=== PATIENT | male | born 1960 | race Caucasian/White ===

== ENCOUNTER 2023-11-25 20:47 | Emergency (ER) | payer OTHER, SELFPAY ==
[2023-11-25 20:52] VITALS: BP 123/90
[2023-11-25] MEDS: TYLENOL 650 MG PO (21:54)
[2023-11-25] MEDS: MOTRIN 600 MG PO (21:54)
[2023-11-25] MEDS: LIDOCAINE 4% PATCH 1 PATCH TOPICAL (21:54)
--- NOTE | 2023-11-25 22:04 | ED.GENMED ---
History of Present Illness
General
Chief Complaint: Back Pain
Source: patient and significant other
Exam Limitations: none
Time Seen by Provider: 11/25/23 21:19
Nursing documentation reviewed up to this point in time: agreed with
Travel History
Have you had any contact with someone who has COVID-19?: No
Do you have any symptoms of coronavirus? Fever > 100 degrees, chills, cough, shortness of breath, sore throat, loss of taste or smell, muscle aches, or headache?: No
History of Present Illness
History of Present Illness:
Patient is a 63-year-old male with past medical history of prediabetes, previous hernia status post repair, Lyme disease approximately 3 years ago, currently undomiciled, who presents to the emergency department accompanied by his for
evaluation of back pain. Patient reports the pain has been going on for at least a few weeks. Patient denies any known injury, trauma, overuse. Patient reports the pain is located over the right mid to lower back. Patient denies that radiates
into the abdomen. Patient reports that sometimes he has chest pain but he has not currently. Patient reports sometimes he has abdominal pain but also has none currently. Patient denies any nausea or vomiting. Patient denies hematuria or issues
with urination. Patient denies fevers or chills. Patient denies any bowel or bladder dysfunction, denies any saddle anesthesia, denies any paresthesias of the lower extremities. Patient denies any recent fevers or IV drug use.
Past History
Past History
ED Past Medical History: Other (pre-diabetes)
ED Past Surgical History: Other (Hernia repair)
Social History
Tobacco: Non-smoker
Alcohol: None
Drug: None
Personal:
Living: homeless
Review of Systems
Review of Systems
Allergies reviewed?: Yes
All Other Systems: Not applicable
Constitutional: Reports no symptoms
EENT: Reports no symptoms
Respiratory: Reports no symptoms
Cardiac: Reports chest pain ('sometimes')
ABD/GI: Reports abdominal pain ('sometimes')
: Reports no symptoms
Musculoskeletal: Reports no symptoms
Skin: Reports no symptoms
Neurological: Reports no symptoms
Endocrine: Reports no symptoms
Hematologic/Lymphatic: Reports no symptoms
Psychiatric: Reports no symptoms
Phy Exam
General Physical Exam
General Presentation: well appearing and no apparent distress
General Skin: warm and dry
General Habitus: normal
General Mental: alert
General Hydration: appears well hydrated
ENT Exam
ENT Exam: EOMI, pharynx normal, neck supple and normocephalic
Eye Exam
Eye Exam: PERRL, cornea clear and conjunctiva normal
Cardiovascular Exam
Cardiovascular Exam: regular rate/rhythm, no edema, no murmur and normal peripheral pulses
Pulmonary Exam
Pulmonary Exam: lungs clear, no respiratory distress, no rales, no crackles, no rhonchi, no stridor, no wheezing and no cough
Gastrointestinal Exam
Gastrointestinal Exam: normal bowel sounds, non tender, soft, no organomegaly, no pulsatile mass and non distended
Neurological Exam
Neurological Exam: alert, oriented x3, no motor deficits and speech normal
Musculoskeletal Exam
Musculoskeletal Exam: full ROM, no edema, back tenderness (mild right inferior thoracic ttp) and other (FROM of the lower extremities, normal strength at the hip and ankles, 2+ DP pulses bilaterally, sensation is intact to light touch distally)
Skin Exam
Skin Exam: normal color, warm/dry, no rash and no petechia
Psychiatric Exam
Psychiatric Exam: normal mood/affect
Course
Orders/Labs/Results
Orders:
Orders
11/25/23 21:44
Acetaminophen [Tylenol] 650 mg PO NOW STA
Ibuprofen [Motrin] 600 mg PO NOW STA
Lidocaine [Lidocaine 4% Patch] 1 patch TOPICAL ONCE STA
Vital Signs
Initial and Last Documented VS:
Initial Vital Signs
Temp Pulse Resp BP Pulse Ox
98.4 F 75 18 123/90 95
11/25/23 20:52 11/25/23 20:52 11/25/23 20:52 11/25/23 20:52 11/25/23 20:52
Last Documented Vital Signs
Temp Pulse Resp BP Pulse Ox
98.4 F 64 18 123/90 97
11/25/23 20:52 11/25/23 22:11 11/25/23 22:11 11/25/23 20:52 11/25/23 22:11
*Critical Care Note
Total Time (30-74mins, 75-104mins- exclusive of procedures): Not Applicable
Update Note
Update Note:
63-year-old male with past medical history as noted currently undomiciled presents to the emergency department with several weeks of right-sided back pain. Patient denies significant pain at this time. Patient notes that sometimes he has abdominal
pain and sometimes he has chest pain but has none currently and has had none recently. On arrival, patient's vital signs are stable, he is afebrile. On exam, patient is well-appearing, he is in no acute distress, he has some very mild tenderness
to palpation over the right lateral inferior thoracic region, he has no CVA tenderness bilaterally, he has a benign abdomen, he is neurovascularly intact. Patient denies any known injury or trauma, I have low suspicion for bony injury. Patient has
no urinary symptoms, I have low suspicion for pyelonephritis. Patient appears very comfortable and I have low suspicion for kidney stone. Patient has normal vital signs and I have low suspicion for aortic catastrophe. I suspect the patient's pain
is likely musculoskeletal in etiology. I will treat the patient with ibuprofen, Tylenol, and a lidocaine patch. Patient reports that he does currently have medical insurance with prescription coverage therefore I will write prescriptions for the
same. Patient reports that he recently arrived to the area and he and his are working to establish doctors, he was encouraged to. Patient and his were educated on return precautions, they expressed understanding of the plan and agreed.
ED Attending Note
-
Portions of this chart may have been created with voice recognition software.� Occasional wrong word or��sound alike� substitutions may have occurred due to the inherent limitations of voice recognition software.
Discharge Plan
Departure
Patient Disposition: Home (Routine Discharge)
Date of Disposition: 11/25/23
Time of Disposition: 21:45
Patient with high blood pressure during this ER visit?: No
Condition: Good
Covid-19: Not Applicable
Discharge Problem:
Right-sided back pain
Instructions: Back Pain
Prescriptions:
New
ibuprofen 600 mg tablet
600 mg PO Q6H PRN (Reason: Pain) 5 Days Qty: 20 0RF
acetaminophen [Tylenol] 325 mg tablet
650 mg PO Q4H PRN (Reason: pain) 5 Days Qty: 30 0RF
lidocaine HCl 4 % adhesive patch,medicated
1 patch topical DAILY PRN (Reason: Pain) 30 Days Qty: 30 0RF
Rx Instructions:
Apply for 12 hours and then take off for 12 hours before applying a new one
Activity Restrictions/Additional Instructions:
You were seen in the emergency department for evaluation of right-sided back pain. Your vital signs were normal today. Your examination did not reveal any concerning causes of back pain such as a broken or dislocated bone, kidney stone, or kidney
infection. You are being treated with medications, you may continue to take these as needed. You may alternate ice and heat to the affected areas for 20 minutes at a time 4-5 times a day. It is important to establish care with a primary care
provider for further evaluation and treatment. Please return to the emergency department if you develop difficulty with your bowel or bladder, if you have numbness of your groin, if you are unable to walk safely, if you have blood in your urine, if
you are unable to urinate, if you have a fever greater than 100.4 �F, or for any other worsening or concerning symptoms.
Interventions
Interventions:
*General Assessment Last Done: 11/25/23 21:28
ED- Fall Risk Assessment Last Done: 11/25/23 21:25
*Nursing Disposition Last Done: 11/25/23 22:29
ED-Musculoskeletal Assessment Last Done: 11/25/23 21:25
Discharge Date and Time
Discharge Date/Time: 11/25/23 22:29
== END 2023-11-25 22:29 | disposition home or self-care (01) ==
LOC: EMR 20:47
PROVIDERS: EMERGENCY PHYSICIAN Emergency Medicine
DX: M54.9 Dorsalgia, unspecified (principal); Z59.00 Homelessness unspecified
CPT/HCPCS: 99283

== ENCOUNTER 2025-01-08 18:43 | Emergency (ER) | payer OTHER, SELFPAY ==
[2025-01-08 18:52] VITALS: BP 123/73
[2025-01-08] MEDS: TYLENOL 1000 MG PO (19:44)
[2025-01-08 19:46] VITALS: BMI 26.7
--- NOTE | 2025-01-08 20:52 | ED.GENMED ---
History of Present Illness
General
Chief Complaint: Back Pain
Source: patient
Exam Limitations: none
Time Seen by Provider: 01/08/25 19:27
Nursing documentation reviewed up to this point in time: agreed with
History of Present Illness
History of Present Illness:
Patient to ED with complaint of low back pain. Symptoms started a few days ago. No radiation of pain, no weakness in extremities, no bowel or bladder symptoms, no saddle paresthesia. No history of trauma. Brought to ED by spouse for eval.
Past History
Past History
ED Past Medical History: Other (pre-diabetes)
ED Past Surgical History: Other (Hernia repair)
Social History
Tobacco: Non-smoker
Alcohol: None
Drug: None
Personal:
Living: homeless
Review of Systems
Review of Systems
Allergies reviewed?: Yes
All Other Systems: ROS reviewed and negative except as documented in HPI and ROS
Constitutional: Reports no symptoms
EENT: Reports no symptoms
Respiratory: Reports no symptoms
Cardiac: Reports no symptoms
ABD/GI: Reports no symptoms
Musculoskeletal: Reports back pain (low back pain)
Skin: Reports no symptoms
Neurological: Reports no symptoms
Psychiatric: Reports no symptoms
Phy Exam
General Physical Exam
General Presentation: well appearing and mild distress
General age: appears stated age
General Skin: warm and dry
General Habitus: normal
General Mental: alert
Neurological Exam
Neurological Exam: alert, oriented x3, no motor deficits, no sensory deficits and normal gait
Reflexes
Reflexes: +3: Left patellar and +3: Right patellar
Musculoskeletal Exam
Musculoskeletal Exam: full ROM and neuro vasc intact
Skin Exam
Skin Exam: normal color, warm/dry and no rash
Psychiatric Exam
Psychiatric Exam: normal mood/affect
Course
Orders/Labs/Results
Orders:
Orders
01/08/25 19:37
Acetaminophen [Tylenol] 1,000 mg PO NOW STA
Lumbar Spine Complete, 4 View [CR Lumbar Spine Comp Min 4 Vw*] Urgent
Comment:
Reason For Exam: low back pain
01/08/25 20:51
Crisis Consult Urgent
Reason for Consult: homeless
Vital Signs
Initial and Last Documented VS:
Initial Vital Signs
Temp Pulse Resp BP Pulse Ox
98.2 F 78 20 123/73 94
01/08/25 18:52 01/08/25 18:52 01/08/25 18:52 01/08/25 18:52 01/08/25 18:52
Last Documented Vital Signs
Temp Pulse Resp BP Pulse Ox
98.2 F 78 20 123/73 94
01/08/25 18:52 01/08/25 18:52 01/08/25 18:52 01/08/25 18:52 01/08/25 18:52
*Critical Care Note
Total Time (30-74mins, 75-104mins- exclusive of procedures): Not Applicable
Update Note
Update Note:
Patient is homeless. Pt and spouse currently sleeping in a van Crisis consulted for possible ch[facility] recommendations.
ED Attending Note
-
Portions of this chart may have been created with voice recognition software.� Occasional wrong word or��sound alike� substitutions may have occurred due to the inherent limitations of voice recognition software.
Discharge Plan
Departure
Patient Disposition: Home (Routine Discharge)
Date of Disposition: 01/08/25
Time of Disposition: 21:07
Patient with high blood pressure during this ER visit?: No
Condition: Good
Covid-19: Not Applicable
Discharge Problem:
Low back pain
Instructions: Low Back Pain (DC), Ibuprofen
Prescriptions:
No Action
ibuprofen 600 mg tablet
600 mg PO Q6H PRN (Reason: Pain) 5 Days Qty: 20 0RF
acetaminophen [Tylenol] 325 mg tablet
650 mg PO Q4H PRN (Reason: pain) 5 Days Qty: 30 0RF
lidocaine HCl 4 % adhesive patch,medicated
1 patch topical DAILY PRN (Reason: Pain) 30 Days Qty: 30 0RF
Rx Instructions:
Apply for 12 hours and then take off for 12 hours before applying a new one
Referrals:
[facility] [Outside] - Next open appointment
NONE,* [Family Provider] -
Interventions
Interventions:
*Risk Screen - Suicide Last Done: 01/08/25 18:52
*General Assessment Last Done: 01/08/25 18:52
*Neglect/Abuse Screening Last Done: 01/08/25 18:52
*ED- Fall Risk Assessment Last Done: 01/08/25 19:47
*ED COVID-19 Vaccine History Last Done: 01/08/25 19:47
*Nursing Disposition Last Done: 01/08/25 21:43
ED-Musculoskeletal Assessment Last Done: 01/08/25 19:48
Discharge Date and Time
Discharge Date/Time: 01/08/25 21:44
Print Language: [email or web address]
Musculoskeletal Injury Exam
Musculoskeletal Injury Exam
Bilateral Lower Back:
Pain with Movement?: Moderate
Tender to palpation?: Mild
Soft tissue swelling?: None
External deformity and angulation?: None
Joint effusion?: None
Contusion?: None
Hematoma-local bleeding into tissue?: None
Strain- Sprain- Tear (Connective tissue injury)?: Moderate
Crepitus with movement?: No
Joint instability?: No
Malalignment/deformity?: No
Range of motion: Full
Distal skin color and temperature: normal-warm & good color
Capillary Refill: normal
Normal distal neurovascular exam?: Yes
Peripheral Pulses: posterior tibial (left): 3+ and dorsalis pedis (left): 3+
== END 2025-01-08 21:44 | disposition home or self-care (01) ==
LOC: EMR 18:43
PROVIDERS: EMERGENCY PHYSICIAN Emergency Medicine
DX: M54.50 Low back pain, unspecified (principal); Z59.00 Homelessness unspecified
CPT/HCPCS: 99283; 72110